=== PATIENT | female | born 1995 | race Caucasian/White ===

== ENCOUNTER → 2024-01-07 19:28 | Outpatient (REF) | payer BC, SELFPAY | LOC: MRI 19:28 | PROVIDERS: ATTENDING PHYSICIAN Nurse Practitioner Adult Health; FAMILY PHYSICIAN Family Medicine | DX: G43.111 Migraine with aura, intractable, with status migrainosus (principal); H47.323 Drusen of optic disc, bilateral | CPT/HCPCS: 70544; 70553; A9575 ==

== ENCOUNTER → 2024-02-12 11:10 | Outpatient (REF) | payer BC, SELFPAY ==
[2024-02-21 00:19] LABS: Chlamydia trachomatis,ThinPrep Negative (Negative); Neisseria gonorrhoeae,ThinPrep Negative (Negative); Specimen Source Cervical
[2024-02-21 00:31] LABS: HPV, High Risk Not Detected; HPV, High Risk Source Cervical
== END ==
LOC: CPAP 11:10
PROVIDERS: ATTENDING PHYSICIAN Obstetrics & Gynecology
DX: Z01.419 Encounter for gynecological examination (general) (routine) without abnormal findings (principal); Z12.4 Encounter for screening for malignant neoplasm of cervix; Z11.3 Encounter for screening for infections with a predominantly sexual mode of transmission
CPT/HCPCS: 87491; 87591; 87624; G0123

== ENCOUNTER → 2024-02-20 15:34 | Outpatient (REF) | payer BC, SELFPAY | LOC: RAD 15:34 | PROVIDERS: ATTENDING PHYSICIAN Family Medicine | DX: M54.9 Dorsalgia, unspecified (principal) | CPT/HCPCS: 72082 ==

== ENCOUNTER → 2024-02-24 06:42 | Outpatient (REF) | payer BC, SELFPAY | LOC: HWWDC 06:42 | PROVIDERS: ATTENDING PHYSICIAN Obstetrics & Gynecology; FAMILY PHYSICIAN Family Medicine | DX: Z12.31 Encounter for screening mammogram for malignant neoplasm of breast (principal); Z80.3 Family history of malignant neoplasm of breast | CPT/HCPCS: 77063; 77067 ==

== ENCOUNTER → 2024-07-09 07:37 | Outpatient (REF) | payer BC, SELFPAY ==
[2024-07-09 09:35] LABS: % Basophils 0.9 % (0-2); % Eosinophils 2.7 % (0-6); % Immature Granulocytes 0.2 % (0-0.5); % Lymphocytes 22.6 % (20.5-51.1); % Monocytes 10.1 % (1.7-9.3); % Neutrophils 63.5 % (42.2-75.2); Absolute Basophils 0.1 10^3/uL (0-0.2); Absolute Eosinophils 0.2 10^3/uL (0-0.7); Absolute Lymphocytes 1.3 10^3/uL (1.2-3.4); Absolute Monocytes 0.6 10^3/uL (0.1-0.6); Absolute Neutrophils 3.7 10^3/uL (1.4-6.5); Hematocrit 41.2 % (37.0-47.0); Mean Corpuscular Hgb 29.5 pg (27.0-31.0); Mean Corpuscular Volume 86.9 fL (81.0-99.0); Mean Platelet Volume 11.1 fL (7.4-10.4); Nucleated Red Blood Cells % 0 %; Platelet Count 287 10^3/uL (130-400); Red Blood Cell Count 4.74 10^6/uL (4.20-5.40); Red Cell Dist. Width 13.2 % (11.5-14.5); White Blood Cell Count 5.8 10^3/uL (4.8-10.8)
[2024-07-09 10:18] LABS: ALT (SGPT) 14 U/L (0-35); AST (SGOT) 22 U/L (14-36); Albumin 4.3 g/dl (3.5-5.0); Alkaline Phosphatase 84 U/L (38-126); Blood Urea Nitrogen 18 mg/dl (7-17); Calcium 9.6 mg/dl (8.4-10.2); Carbon Dioxide 27 mmol/L (22-30); Chloride 102 mmol/L (98-107); Glucose 97 mg/dl (70-99); HDL Cholesterol 50 mg/dl; LDL Cholesterol, Calculated 88 mg/dl; Magnesium 1.9 mg/dl (1.6-2.3); Potassium 4.3 mmol/L (3.5-5.1); Sodium 139 mmol/L (135-145); Total Bilirubin 0.7 mg/dl (0.2-1.3); Total Cholesterol 151 mg/dl (50-199); Total Protein 7.1 g/dl (6.3-8.2); Triglyceride 66 mg/dl (10-149); Uric Acid 5.8 mg/dl (2.5-6.2); Very Low Density Lipoprotein 13 mg/dl (0-30); eGFR > 60.00
[2024-07-09 10:27] LABS: Free T4 1.06 ng/dl (0.78-2.19)
[2024-07-09 10:30] LABS: Glycohemoglobin (HgbA1c) 5.2 % (4.0-5.6)
[2024-07-09 10:41] LABS: TSH 1.66 uIU/ml (0.47-4.68)
[2024-07-10 17:16] LABS: Insulin, Random 6 uIU/mL
== END ==
LOC: HWLAB 07:37
PROVIDERS: ATTENDING PHYSICIAN Nurse Practitioner; FAMILY PHYSICIAN Family Medicine
DX: F34.1 Dysthymic disorder (principal); G43.909 Migraine, unspecified, not intractable, without status migrainosus; R63.2 Polyphagia; E66.09 Other obesity due to excess calories; Z13.1 Encounter for screening for diabetes mellitus; Z13.220 Encounter for screening for lipoid disorders
CPT/HCPCS: 36415; 80053; 80061; 83036; 83525; 83735; 84439; 84443; 84550; 85025

== ENCOUNTER → 2024-07-14 18:17 | Outpatient (REF) | payer BC, SELFPAY | LOC: MRI 3T 18:17 | PROVIDERS: ATTENDING PHYSICIAN Surgery; FAMILY PHYSICIAN Family Medicine | DX: Z91.89 Other specified personal risk factors, not elsewhere classified (principal); R92.30 Dense breasts, unspecified; Z80.3 Family history of malignant neoplasm of breast | CPT/HCPCS: 77049; A9585 ==

== ENCOUNTER → 2024-11-26 09:58 | Outpatient (REF) | payer BC, SELFPAY | LOC: RAD 09:58 | PROVIDERS: ATTENDING PHYSICIAN Nurse Practitioner Adult Health; FAMILY PHYSICIAN Family Medicine | DX: M79.673 Pain in unspecified foot (principal); M79.671 Pain in right foot | CPT/HCPCS: 73630 ==

== ENCOUNTER → 2025-01-18 19:30 | Outpatient (REF) | payer BC, SELFPAY | LOC: MRI 3T 19:30 | PROVIDERS: ATTENDING PHYSICIAN Family Medicine | DX: M79.671 Pain in right foot (principal) | CPT/HCPCS: 73721 ==